=== PATIENT | male | born 1955 | race Caucasian/White ===

== ENCOUNTER 2020-01-06 23:33 | Emergency (ER) | payer OTHER ==
[~2020-01-06] VITALS: Ht 170.2 cm; Wt 76.7 kg
[2020-01-06 23:39] VITALS: BP 163/92
[2020-01-07] MEDS: PENICILLIN V POTASSIUM 250 MG TAB PO ONE (00:23)
[2020-01-07 00:25] VITALS: BP 143/84
== END 2020-01-07 00:25 | disposition home or self-care (01) ==
LOC: MED 23:33
DX: K04.7 Periapical abscess without sinus (principal)
CPT/HCPCS: 99283